=== PATIENT | male | born 1965 | race Caucasian/White ===

== ENCOUNTER 2018-05-21 19:05 | Emergency (ER) | payer SELFPAY ==
[2018-05-21] MEDS ORDERED: ACETAMINOPHEN 500 MG TAB ONE (19:22)
[2018-05-21] MEDS ORDERED: ACETAMINOPHEN 500 MG TAB PO ONE (19:24)
--- NOTE | 2018-05-21 21:06 | EDPHY ---
H & P Time Seen by Provider: 05/21/18 21:06 HPI/ROS: Chief complaint. Fever HPI. Patient is a 53-year-old male presents emergency department with fever for the last 2 days. Highest temp he saw was 100.4 degrees. He patient is visiting from [place]. 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 He had surgery January 2018. He finished radiation 2 weeks ago. He saw his oncologist just prior to coming to [place] and seemed to be healing. He has had upper respiratory symptoms of runny nose and congestion and some cough for 3 days. No abdominal pain. No nausea vomiting or diarrhea. No urinary symptoms. No pain redness or swelling to the right side of his neck where he had surgery. ROS Constitutional. Fever Eyes. no problems with vision ENT. Congestion Cardiovascular. no chest pain Respiratory. No shortness of breath but some cough Abdominal. no abdominal pain, no nausea/vomiting, no diarrhea . no problems urinating MS. no calf pain/swelling, no neck/back pain, no joint pain Skin. no rash Lymph. no swollen glands Neuro. no headache, no dizziness, no difficulty walking or with speech Past Medical/Surgical History: Tonsil cancer Social History: Single, nonsmoker, no alcohol Smoking Status: Never smoked Physical Exam: General Appearance: Alert well-developed male mild distress vital signs show temp 38.0 degrees. Other vitals are normal Eyes: Pupils equal and round no pallor or injection. ENT, throat without injection. Mucous membranes are moist Respiratory: There are no retractions, lungs are clear to auscultation. Cardiovascular: Regular rate and rhythm. Gastrointestinal: Abdomen is soft and nontender, no masses, bowel sounds normal. Neurological: Awake and alert, sensory and motor exams grossly normal. Skin: Warm and dry, no rashes. Musculoskeletal: Neck is supple nontender. Extremities symmetrical, full range of motion. Psychiatric: Patient is oriented X 3, there is no agitation. Constitutional: Initial Vital Signs Temperature (C) 38.0 C 05/21/18 19:16 Heart Rate 91 05/21/18 19:16 Respiratory Rate 18 05/21/18 19:16 Blood Pressure 133/68 H 05/21/18 19:16 O2 Sat (%) 94 05/21/18 19:16 O2 Delivery Mode Room Air Allergies/Adverse Reactions: No Known Allergies Allergy (Unverified 05/21/18 19:19) Home Medications: Medication Instructions Recorded Gabapentin [Neurontin] 900 mg PO TID 05/21/18 HYDROmorphone HCL/NS 4 mg 05/21/18 [HYDROmorphone] fentaNYL [Fentanyl] 1 each TD 05/21/18 Medical Decision Making - Diagnostics Imaging Results: Imaging Impressions Chest X-Ray 05/21/18 19:38 Impression: Mild bronchitis. No other findings for acute cardiopulmonary abnormality. Procedures: Septic workup ED Course/Re-evaluation: Re-evaluation at 10:45 p.m.. Patient is feeling well. He feels well to go home. The patient and I discussed imaging and lab results. We discussed treatment plan including criteria for return importance of follow-up and further evaluation. He will be in [place] for 2 more days. He is encouraged to return should he have worsening symptoms. Differential Diagnosis: I considered pneumonia, urinary tract infection, sepsis, complications from recent surgery and radiation. No evidence for cellulitis - Data Points Laboratory Results: Laboratory Results 05/21/18 20:25 05/21/18 20:25 05/21/18 05/21/18 05/21/18 22:05 21:30 20:25 WBC RBC Hgb Hct MCV MCH MCHC RDW Plt Count MPV Neut % (Auto) Lymph % (Auto) [place] % (Auto) Eos % (Auto) Baso % (Auto) Nucleat RBC Rel Count Absolute Neuts (auto) Absolute Lymphs (auto) Absolute Monos (auto) Absolute Eos (auto) Absolute Basos (auto) Absolute Nucleated RBC Immature Gran % Immature Gran # RBC/WBC/PLT Morphology Platelet Estimate PT INR APTT VBG Lactic Acid 0.8 mmol/L mmol/L (0.7-2.1) Sodium 138 mEq/L mEq/L (135-145) Potassium 3.9 mEq/L mEq/L (3.3-5.0) Chloride 104 mEq/L mEq/L (97-110) Carbon Dioxide 25 mEq/l mEq/l (22-31) Anion Gap 9 mEq/L mEq/L (8-16) BUN 10 mg/dL mg/dL (7-23) Creatinine 0.9 mg/dL mg/dL (0.7-1.3) Estimated GFR > 60 Glucose 106 mg/dL H mg/dL (70-100) Calcium 8.8 mg/dL mg/dL (8.5-10.4) Total Bilirubin 0.4 mg/dL mg/dL (0.1-1.4) Urine Color YELLOW Urine Appearance CLEAR Urine pH 7.0 (5.0-7.5) Ur Specific [place] 1.011 (1.002-1.030) Urine Protein NEGATIVE (NEGATIVE) Urine Ketones NEGATIVE (NEGATIVE) Urine Blood NEGATIVE (NEGATIVE) Urine Nitrate NEGATIVE (NEGATIVE) Urine Bilirubin NEGATIVE (NEGATIVE) Urine Urobilinogen NEGATIVE EU EU (0.2-1.0) Ur Leukocyte Esterase NEGATIVE (NEGATIVE) Urine Glucose NEGATIVE (NEGATIVE) 05/21/18 05/21/18 20:25 20:25 WBC 5.54 10^3/uL 10^3/uL (3.80-9.50) RBC 4.52 10^6/uL 10^6/uL (4.40-6.38) Hgb 12.7 g/dL L g/dL (13.7-17.5) Hct 37.1 % L % (40.0-51.0) MCV 82.1 fL fL (81.5-99.8) MCH 28.1 pg pg (27.9-34.1) MCHC 34.2 g/dL g/dL (32.4-36.7) RDW 13.6 % % (11.5-15.2) Plt Count 151 10^3/uL 10^3/uL (150-400) MPV 9.5 fL fL (8.7-11.7) Neut % (Auto) 74.6 % H % (39.3-74.2) Lymph % (Auto) 8.8 % L % (15.0-45.0) [place] % (Auto) 10.5 % % (4.5-13.0) Eos % (Auto) 5.2 % % (0.6-7.6) Baso % (Auto) 0.7 % % (0.3-1.7) Nucleat RBC Rel Count 0.0 % % (0.0-0.2) Absolute Neuts (auto) 4.13 10^3/uL 10^3/uL (1.70-6.50) Absolute Lymphs (auto) 0.49 10^3/uL L 10^3/uL (1.00-3.00) Absolute Monos (auto) 0.58 10^3/uL 10^3/uL (0.30-0.80) Absolute Eos (auto) 0.29 10^3/uL 10^3/uL (0.03-0.40) Absolute Basos (auto) 0.04 10^3/uL 10^3/uL (0.02-0.10) Absolute Nucleated RBC 0.00 10^3/uL 10^3/uL (0-0.01) Immature Gran % 0.2 % % (0.0-1.1) Immature Gran # 0.01 10^3/uL 10^3/uL (0.00-0.10) RBC/WBC/PLT Morphology TNP Platelet Estimate TNP PT 14.7 SEC SEC (12.0-15.0) INR 1.13 (0.83-1.16) APTT 31.6 SEC SEC (23.0-38.0) VBG Lactic Acid Sodium Potassium Chloride Carbon Dioxide Anion Gap BUN Creatinine Estimated GFR Glucose Calcium Total Bilirubin Urine Color Urine Appearance Urine pH Ur Specific [place] Urine Protein Urine Ketones Urine Blood Urine Nitrate Urine Bilirubin Urine Urobilinogen Ur Leukocyte Esterase Urine Glucose Medications Given: Discontinued Medications Acetaminophen (Tylenol) 1,000 mg PO EDNOW ONE Stop: 05/21/18 19:25 Last Admin: 05/21/18 19:25 Dose: 1,000 mg Departure - Departure Disposition: Home, Routine, Self-Care Clinical Impression: Upper respiratory infection Qualifiers: URI type: unspecified URI Qualified Code(s): J06.9 - Acute upper respiratory infection, unspecified Condition: Good Instructions: Upper Respiratory Infection (ED) Additional Instructions: Drink plenty of fluids and stay hydrated. Tylenol 1000 mg every 6 hr as needed for fever. Return for worsening symptoms or fever. Re-evaluation by your regular physician upon return home to [place] Referrals: NONE *PRIMARY CARE P,. [Primary Care Provider] - As per Instructions
[2018-05-21 21:40] LABS: PLATELET COUNT 151 10^3/uL (150-400)
[2018-05-21 21:49] LABS: INR 1.13 (0.83-1.16); PROTIME(PATIENT) 14.7 SEC (12.0-15.0)
[2018-05-21 22:23] VITALS: BP 116/60
== END 2018-05-21 23:07 | disposition home or self-care (01) ==
DX: J20.9 Acute bronchitis, unspecified (principal); C09.9 Malignant neoplasm of tonsil, unspecified